=== PATIENT | female | born 1990 ===

== ENCOUNTER 2024-09-24 10:34 | Day surgery (SDC) | payer OTHER ==
[2024-09-24] MEDS ORDERED: POVIDONE-IODINE 118 ML BOTT TOP ONE (11:58)
== END 2024-09-24 18:50 | disposition home or self-care (01) ==
LOC: CIR.AMB 10:34
PROVIDERS: ATTEND Student in an Organized Health Care Education/Training Program
DX: T83.32XA Displacement of intrauterine contraceptive device, initial encounter (principal); N93.8 Other specified abnormal uterine and vaginal bleeding; Z91.013 Allergy to seafood